=== PATIENT | male | born 1955 | race Caucasian/White ===

== ENCOUNTER → 2017-02-16 | Outpatient (CLI) | payer OTHER | LOC: FIMAGING 16:46 | PROVIDERS: ATTEND Family Medicine Sports Medicine | DX: M99.73 Connective tissue and disc stenosis of intervertebral foramina of lumbar region (principal); M25.78 Osteophyte, vertebrae ==

== ENCOUNTER 2017-03-28 12:07 | Day surgery (SDC) | payer OTHER ==
--- NOTE | 2017-03-27 17:07 | GHP ---
[f rep st] PREOP HISTORY AND PHYSICAL DATE OF ADMISSION: 03/28/2017 HISTORY: The patient is a pleasant 61-year-old gentleman who began experiencing a gradual onset of left lower extremity weakness about 3 months ago. He states that also 9 months ago, he had surgery on his right knee and, postoperatively, required a full knee extension brace, which altered his gait , and may have had some contributing factor to his lower back problems currently. At this time, he does not have significant pain, but he is mainly concerned about his weakness in the left lower extr emity. On a visual analog scale of 1-10, his current symptoms are 2. He does have paresthesias in the left leg. The patient denies any loss of bowel or bladder control. He has had a history of chr onic intermittent low back pain in the past, for which he was wearing a shoe lift on the left. Over all treatments have included anti-inflammatories, prednisone, physical therapy, and a home exercise regimen. SOCIAL HISTORY: Patient uses alcohol occasionally. He denies use of tobacco. 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 FAMILY HISTORY: Negative. PAST MEDICAL HISTORY: Gastroesophageal reflux disease, BPH, hypertension, and leg length discrepanc y. PAST SURGICAL HISTORY: Appendectomy, right patellar tendon repair, and left distal femoral osteotom y. ALLERGIES: Medication allergies are none. MEDICATIONS: Valsartan, amlodipine, omeprazole and dutasteride. REVIEW OF SYSTEMS: A 10-point review is negative for any pertinent positives. PHYSICAL EXAM: VITAL SIGNS: Blood pressure is 132/82. GENERAL APPEARANCE: Patient is alert and o riented x3. He is 6 feet tall, and weighs 230 pounds. CARDIAC: Regular rate and rhythm, without d etectable murmur, rub, or gallop. LUNGS: Clear to auscultation. He has no wheezing or rhonchi. N EUROLOGIC: Exam shows strength of bilateral lower extremities to be 5/5 throughout, with the except ion of the left tibialis anterior, which is 4+/5, and left EHL is 3/5. His left peroneals are 4+/5. He does have loss of his right medial gastrocnemius head due to use for a surgical flap. Light to uch is diminished in the right lower extremity due to this previous surgery. Patellar reflexes are 2/4 bilaterally. Achilles reflexes are absent bilaterally. Straight leg raising is negative x2 for radiculopathy. Gait shows evidence of a partial left footdrop. RADIOGRAPHIC STUDIES: MRI of the lumbar spine shows severe degenerative disc disease, L5-S1, and mi ld at L4-5, and mild to moderate at L1-2. The patient has a very large left L4-5 disc herniation, w ith inferior migration causing stenosis also at the L5-S1 level. IMPRESSION: 1. Left L4, L5, S1 radiculopathies with motor weakness. 2. Large left L4-5 disc extrusion with inferior migration. 3. Moderate stenosis at L4-5 and L5-S1 neural foraminally. PLAN: The patient will undergo a left L4-5 microdiskectomy, and left L5 hemilaminectomy for the dis c herniation and motor weakness. Potential risks, benefits, and possible complications have been th oroughly discussed including, but not limited to, dural tear, CSF leak, meningitis, nerve root injur y, partial or complete paralysis, lack of improvement of his symptomatology, specifically his partia l footdrop on the left, need for further surgery, including a fusion, as well as DVT, PE, pneumonia, stroke, heart attack, hemorrhage, blindness, and . The patient's questions have been answered thoroughly. He will be n.p.o. after midnight tonight. Surgery will be performed as an outpatient procedure. /[id number]/MODL
[~2017-03-28 12:07] MED LIST: ceFAZolin 2 GM/DEXTROSE 100 ML IV ONE
[2017-03-28] MEDS ORDERED: CEFAZOLIN 2 GM/DEXTROSE/100 ML BAG IV ONE (13:21)
[2017-03-28] MEDS ORDERED: methylPREDNISolone SOD SUCC 125 MG/2 ML VIAL ONE (13:37)
[2017-03-28] MEDS ORDERED: BUPIVACAINE 0.25% 30 ML SDV ONE (13:37)
[2017-03-28] MEDS ORDERED: THROMBIN (BOVINE) 5,000 UNIT VIAL TP ONE (13:37)
[2017-03-28] MEDS ORDERED: BACITRACIN 50,000 UNITS/10 ML SYR IRR ONE (13:38)
[2017-03-28] MEDS ORDERED: DEXAMETHASONE 10 MG/ML VIAL ONE (13:38)
[2017-03-28] MEDS ORDERED: PROPOFOL/EMULSION 500 MG/50 ML BOTTLE IV ONE ×2 (13:51→15:56)
[2017-03-28] MEDS ORDERED: MIDAZOLAM 2 MG/2 ML VIAL ONE (14:35)
[2017-03-28] MEDS ORDERED: fentaNYL 100 MCG/2 ML INJ ONE ×3 (14:39→17:30)
[2017-03-28] MEDS ORDERED: DESFLURANE 240 ML BOTTLE IH ONE (15:21)
[2017-03-28] MEDS ORDERED: AVITENE POWDER 1 GM JAR TP ONE (16:28)
[2017-03-28] MEDS ORDERED: ACETAMINOPHEN 325 MG TAB PO PRN (17:29)
[2017-03-28] MEDS ORDERED: HYDROmorphONE/DILAUDID 1 MG/ML SYR ONE (17:30)
[2017-03-28] MEDS ORDERED: D5W 1/2 NS W/ 20 KCl/L 1,000 ML IV SCH (17:30)
[2017-03-28] MEDS ORDERED: ONDANSETRON 4 MG/2 ML VIAL IVP PRN (17:30)
[2017-03-28] MEDS ORDERED: PROMETHAZINE HCL 25 MG/ML INJ IVP PRN (17:31)
[2017-03-28] MEDS ORDERED: diphenhydrAMINE 25 MG CAP PO PRN (17:31)
[2017-03-28] MEDS ORDERED: OXYCODONE/APAP 5/325 TAB ONE (18:00)
--- NOTE | 2017-03-29 10:03 | GOP ---
[f rep st] OPERATIVE REPORT DATE OF OPERATION: 03/28/2017 SURGEON: Angelica Paris MD DISHWASHER: Jerald Aguilar SA. ANESTHESIA: General endotracheal intubation. ANESTHESIOLOGIST: Jose Gardner MD. PREOPERATIVE DIAGNOSIS: 1. Left L4-5 large disk extrusion with sequestration inferiorly. 2. Left L4, L5, and S1 radiculopathies with motor weakness. 3. Moderate stenosis L4-5 and left L5-S1 foramen. POSTOPERATIVE DIAGNOSIS: 1. Left L4-5 large disk extrusion with sequestration inferiorly. 2. Left L4, L5, and S1 radiculopathies with motor weakness. 3. Moderate stenosis L4-5 and left L5-S1 foramen. PROCEDURE PERFORMED: 1. Left L4-5 microdiskectomy. 2. Left L5 cristofer laminectomy. 3. Placement of lumbar epidural steroid injection for postoperative anti-inflammatory effect. FINDINGS: Large left L4-5 disk herniation with sequestration inferiorly in 3 large fragments totali ng 1.5 x 2 cm in size. Findings also included epidural fibrosis and edema of the left L5 nerve root . ESTIMATED BLOOD LOSS: Approximately 50 cc. INDICATIONS: The patient is a pleasant 61-year-old gentleman with a 3 month history of left lower e xtremity pain, weakness, tingling, and numbness. The pain has resolved, and he is mainly concerned of the weakness and paresthesias. On a visual analog scale of 1-10, his current pain is a 1 to 2, b ut 100% of his symptoms are referable to the left lower extremity. Treatments have included prednis one, anti-inflammatories, physical therapy, and home exercise program. On MRI, he was found to have a very large left L4-5 disk herniation with inferior migration causing compression of the L5 nerve root. Patient has elected to undergo surgery. No guarantees were given in regard to surgical outco me. Potential risks, benefits, possible complications have been thoroughly discussed including but not limited to, dural tear with CSF leak, meningitis, nerve root injury, partial or complete paralys is, infection, need for further surgery, DVT, PE, pneumonia, stroke, heart attack, hemorrhage, blind ness, and . DESCRIPTION OF PROCEDURE: After obtaining both written and verbal consent from the patient, he was brought to the operating room where he underwent a general endotracheal intubation. Patient receive d IV antibiotics. Patient was positioned on the Itz frame. His eyes were protected by the anest hesiologist. A lateral fluoroscopic x-ray was obtained for localization. The lumbar spine was prep ped and draped in the normal sterile fashion. A timeout was performed with the entire operating jayna m team, confirming patient's name, date of , planned surgical procedure including level and dana e, antibiotics given, and allergies to medications. A midline longitudinal incision was made dorsally at L4-5 measuring about 1 inch in length. The inc ision was brought down through skin, subcutaneous tissues, and to the overlying dorsal fascia. Para spinal muscles were stripped in a subperiosteal fashion on the left. A self-retaining retractor was placed. An intraoperative x-ray confirmed localization of the L4-5 disk space. The operating micr oscope was brought in for further visualization. A 5 mm round bur was then used to create a laminot timoteo on the left at L4-5. A 2 and 3 mm Kerrison were then used to remove the ligamentum flavum and t hen the left L5 cristofer laminectomy was performed similarly using a 5 mm round bur and 3 mm Kerrison. Care was taken to protect the dura at all times. The exiting L5 nerve root was identified. It shou ld also be noted that somatosensory evoked potentials, and EMGs were set up and performed throughout the entire surgery to increase safety and protect the neural structures. Identification of the left L5 nerve root showed it to be exceedingly edematous, and there was some e pidural fibrosis consistent with subacute to chronic inflammation. A Armington 4 and a Zane were then used to gently palpate ventral to the L5 nerve root and to free up the adhesions. A disk herni ation was identified that was extruded. A left nerve root retractor was used to gently retract the L5 nerve root although I was not able to retract it more than 2-3 mm due to fibrosis. There were no changes in spinal cord monitoring. A micro pituitary was utilized to remove a very large free frag ment of disk material, and then a second large fragment was also identified and removed. A Forsyth then was used to palpate again ventral, lateral, and distal to the disk space, and distally, there w as a third large free fragment migrated to just inferior to the L5 pedicle. This was removed again with a pituitary Rob and micro pituitary rongeur. Again, palpation and visualization of the entir e area was performed, and there were no other areas of compressive pathology nor any further fragmen ts of disk material. Irrigation was performed. Hemostasis was obtained with Avitene and bipolar ca utery. There was no evidence of dural tear or cerebral spinal fluid leakage. Once hemostasis was c ompletely obtained, 125 mg of Solu-Medrol was placed over the exiting L5 nerve root on the left, and Gelfoam with Avitene was used to cover the area. The wound was closed using a #1 Vicryl in the hoda p fascial layer followed by an 0 Vicryl in the subcutaneous tissues and a 2-0 undyed Vicryl also in the subcutaneous level followed by skin dom. 20 cc of 0.25% Marcaine without epinephrine was in filtrated into the subcutaneous tissues for additional postoperative pain control. Sterile dressing was applied. Lumbar warm and form corset was placed. Patient was then rolled to the supine positi on. He was extubated in the operating room and brought to the recovery room in satisfactory conditi on. COMPLICATIONS: None. There were no changes in somatosensory evoked potentials nor in EMGs. POSTOPERATIVE PLAN: Close neurologic observation, close airway observation, and discharged to home pending successful recovery in the recovery room. /[id number]/MODL
== END 2017-03-28 19:20 | disposition home or self-care (01) ==
LOC: FSGY 12:07
PROVIDERS: ATTEND Orthopaedic Surgery Orthopaedic Surgery of the Spine
PROC: 00N Central Nervous System and Cranial Nerves, Release (ICD-10-PCS; principal; 2017-03-28 13:45)
DX: M51.26 Other intervertebral disc displacement, lumbar region (principal); M51.37 Other intervertebral disc degeneration, lumbosacral region; M51.36 Other intervertebral disc degeneration, lumbar region; M48.06 Spinal stenosis, lumbar region; G96.19 Other disorders of meninges, not elsewhere classified; I10 Essential (primary) hypertension; K21.9 Gastro-esophageal reflux disease without esophagitis; N40.0 Benign prostatic hyperplasia without lower urinary tract symptoms; Z98.890 Other specified postprocedural states
CPT/HCPCS: J0690; J1170; J2250; J2704; J3010